=== PATIENT | male | born 1970 | race Caucasian/White ===

== ENCOUNTER 2020-07-03 13:49 | Observation (INO) ==
[2020-07-03] MEDS ORDERED: *HR* Propofol 200 MG/20 ML VIAL IVP ONE ×2 (16:29→17:01)
[2020-07-03] MEDS ORDERED: Isovue-300 50ML VIAL ONE (17:00)
[2020-07-03] MEDS ORDERED: Naloxone 0.4 MG/ML INJ IVP PRN ×2 (17:29→18:39)
[2020-07-03] MEDS ORDERED: 0.9 % Sodium Chloride 1,000 ML IVC SCH ×2 (17:30→18:39)
[2020-07-03] MEDS ORDERED: D5% in Water 1,000 ML IVC PRN ×2 (17:34→18:39)
[2020-07-03] MEDS ORDERED: Dextrose Gel 15 GM/37.5 ML TUBE PO PRN ×4 (17:34→18:39)
[2020-07-03] MEDS ORDERED: *HR* Dextrose 50 % in Water (Vial) 50 ML VIAL IVP PRN ×2 (17:34→18:39)
[2020-07-03] MEDS ORDERED: cefTRIAXone 1,000 MG in Water for inj. (sterile) 10 ML IVP SCH (18:00)
[2020-07-03] MEDS ORDERED: Insulin LISPRO 300 UNITS/3 ML VIAL SUBQ SCH (18:00)
[2020-07-03] MEDS ORDERED: Ondansetron 4 MG/2 ML VIAL IVP PRN (18:39)
[2020-07-03] MEDS ORDERED: *HR* HYDROcodone/Acet 5/325 mg TABLET PO PRN (18:39)
[2020-07-03] MEDS ORDERED: Hyoscyamine SL 0.125 MG TAB.SUBL SL PRN (18:39)
[2020-07-03] MEDS ORDERED: *HR* Promethazine 25 MG/ML VIAL IM PRN (18:39)
[2020-07-03] MEDS ORDERED: *HR* OxyCODONE Immed Rel 5 MG TABLET PO PRN (18:39)
[2020-07-03] MEDS ORDERED: *HR* Belladonna Alkaloids/Opium 30 MG RECTAL SUPPOSITORY RC PRN (18:39)
[2020-07-03] MEDS: Insulin LISPRO 300 UNITS/3 ML VIAL SUBQ SCH (18:44)
[2020-07-04] MEDS ORDERED: 0.9 % Sodium Chloride 1,000 ML IVC SCH (00:30)
[2020-07-04 06:22] LABS: Basophils % 0.4 %; Eosinophils # 0.1 K/mcL (0.0-0.6); Eosinophils % 1.7 %; Hematocrit 32.8 % (37.5-50.1); Hemoglobin 11.1 g/dL (12.9-16.9); Immature Granulocytes % 0.3 % (0-4); Lymphocytes # 2.1 K/mcL (0.6-4.6); Mean Corpuscular HGB Conc 33.8 g/dL (31.6-35.5); Mean Corpuscular Hemoglobin 30.1 pg (28.0-33.3); Mean Corpuscular Volume 88.9 fL (83.0-100.0); Monocytes # 0.8 K/mcL (0.0-1.3); Neutrophils # 4.7 K/mcL (1.6-8.9); Platelet Count 241 K/mcL (140-400); Red Blood Count 3.69 M/mcL (4.19-5.50); Red Cell Distribution Width 12.2 % (11.5-14.5); Segmented Neutrophils % 60.6 %; White Blood Count 7.8 K/mcL (4.3-11.1)
[2020-07-04 06:39] LABS: BUN/Creatinine Ratio 14 (6-26); Blood Urea Nitrogen 18 mg/dL (6-20); Calcium 9.2 mg/dL (8.6-10.3); Carbon Dioxide 27 mEq/L (23-29); Chloride 104 mEq/L (98-107); Glucose 215 mg/dL (70-105); Osmolality,Calculated 290 (280-300); Potassium 4.1 mEq/L (3.5-5.1); Sodium 136 mEq/L (136-145); eGFR For African Americans > 60 (> 60); eGFR For Non-African Americans 57 (> 60)
[2020-07-04 07:29] VITALS: BP 166/93
[2020-07-04] MEDS ORDERED: allopurinoL 300 MG TABLET PO SCH (09:00)
[2020-07-04] MEDS ORDERED: cefTRIAXone 1,000 MG in Water for inj. (sterile) 10 ML IVP SCH (09:00)
[2020-07-04] MEDS ORDERED: Acetaminophen 325 MG TABLET PO ONE (10:07)
[2020-07-04] MEDS: Insulin LISPRO 300 UNITS/3 ML VIAL SUBQ SCH (10:29)
[2020-07-04] MEDS ORDERED: amLODIPine 5 MG TABLET PO SCH (11:15)
== END 2020-07-04 11:28 | disposition home or self-care (01) ==
LOC: 3ANU → SUATTDRO 15:11
PROVIDERS: ADMIT Internal Medicine; ATTEND Family Medicine